=== PATIENT | female | born 1970 | race Two or more races ===

== ENCOUNTER 2018-10-02 20:41 | Emergency (ER) | payer OTHER ==
[2018-10-02 21:06] VITALS: BP 134/84; PULSE 116; TEMP 98.5; BMI 34.5
[2018-10-02] MEDS ORDERED: ALBUTEROL SO4 2.5/IPRATROPIUM 0.5 INH SOL 3 ML VIAL.NEB. NEB ONE ×2 (21:07→21:15)
--- NOTE | 2018-10-02 21:07 | PDOC ---
Rapid Medical Evaluation Time Seen by Provider: 10/02/18 21:01 Medical Evaluation: 10/02/18 21:03 Pt c/o: cough, throat irritation , chills, nasal congestion Pt on brief exam: tachy, afebrile, lcta, noted nasal rhinorrhea pt ordered for: brib x 1 Pt to proceed to the ED Discharge Disposition - Diagnosis Cough - Referrals - Patient Instructions - Post Discharge Activity
[2018-10-02] MEDS ORDERED: DEXAMETHASONE LIQUID 0.5 MG/5 ML 240 ML BULK BOTTLE PO ONE (21:40)
[2018-10-02] MEDS ORDERED: DEXAMETHASONE SOD PHOSPHATE 10 MG/1 ML VIAL ONE (21:42)
--- NOTE | 2018-10-02 21:46 | PDOC ---
History of Present Illness - General Chief Complaint: Cold Symptoms Stated Complaint: COUGH Time Seen by Provider: 10/02/18 21:01 History Source: Patient Exam Limitations: Clinical Condition - History of Present Illness Initial Comments: 10/02/18 21:40 Patient with no significant past medical history present with complaint of persistent dry cough, nasal congestion, runny nose and headache since this morning. Patient denies fever, chills, nausea or vomiting. Denies sick contacts or recent travel. Patient reported taking Robitussin for cough with minimal improvement. Denies any other symptoms Timing/Duration: 4-6 hours Past History - Past Medical History Allergies/Adverse Reactions: Allergies Allergy/AdvReac Type Severity Reaction Status Date / Time No Known Allergies Allergy Verified 10/02/18 21:06 Home Medications: Ambulatory Orders Albuterol Sulfate Inhaler - [Ventolin Hfa Inhaler -] 2 inh PO Q6H #1 inh Benzonatate [Tessalon Pearls -] 100 mg PO TID PRN #21 capsule 10/02/18 Ipratropium [place]ainbridge 2 spray NS BID PRN #1 spray 10/02/18 Montelukast Na [Singulair -] 10 mg PO HS #7 tablet 10/02/18 COPD: No - Suicide/Smoking/Psychosocial Hx Smoking History: Current every day smoker Have you smoked in the past 12 months: Yes Number of Cigarettes Smoked Daily: 10 Information on smoking cessation initiated: No Hx Alcohol Use: No Drug/Substance Use Hx: No Review of Systems - Review of Systems Able to Perform ROS?: Yes Is the patient limited Thai proficient: No Constitutional: No: Chills, Fever, Malaise HEENTM: Yes: Symptoms Reported, See HPI, Nose Congestion. No: Eye Pain, Blurred Vision, Tearing, Recent change in vision, Double Vision, Cataracts, Ear Pain, Ocular Prothesis, Ear Discharge, Nose Pain, Tinnitus, Nose Bleeding, Hearing Loss, Throat Pain, Throat Swelling, Mouth Pain, Dental Problems, Difficulty Swallowing, Mouth Swelling, Other Respiratory: Yes: Symptoms reported, See HPI, Cough. No: Orthopnea, Shortness of Breath, SOB with Exertion, SOB at Rest, Stridor, Wheezing, Productive cough, Hemoptysis, Other Cardiac (ROS): No: Symptoms Reported, See HPI, Chest Pain, Edema, Irregular Heart Rate, Lightheadedness, Palpitations, Syncope, Chest Tightness, Other ABD/GI: No: Nausea, Vomiting Integumentary: No: Symptoms Reported Neurological: Yes: Symptoms reported, Headache. No: Numbness, Paresthesia, Weakness, Dizziness All Other Systems: Reviewed and Negative *Physical Exam - Vital Signs Last Vital Signs Temp Pulse Resp BP Pulse Ox 98.5 F 116 H 21 H 134/84 99 10/02/18 21:04 10/02/18 21:04 10/02/18 21:04 10/02/18 21:04 10/02/18 21:04 - Physical Exam Comments: 10/02/18 21:43 GENERAL: Well developed, well nourished. Awake and alert. No acute distress. HEENT: Bilateral nasal congestion. Normocephalic, atraumatic. PERRLA, EOMI. No conjunctival pallor. Sclera are non-icteric. Moist mucous membranes. Oropharynx is clear. NECK: Supple. Full ROM. CARDIOVASCULAR: Regular rate and rhythm. No murmurs, rubs, or gallops. Distal pulses are 2+ and symmetric. PULMONARY: No evidence of respiratory distress. Lungs clear to auscultation bilaterally. No wheezing, rales or rhonchi. ABDOMINAL: Soft. Non-tender. Non-distended. No rebound or guarding. No organomegaly. Normoactive bowel sounds. MUSCULOSKELETAL Normal range of motion at all joints. EXTREMITIES: No cyanosis. No clubbing. No edema. SKIN: Warm and dry. Normal capillary refill. No rashes. No jaundice. NEUROLOGICAL: Alert, awake, appropriate. Gait is normal without ataxia. PSYCHIATRIC: Cooperative. Good eye contact. Appropriate mood General Appearance: Yes: Nourished, Appropriately Dressed. No: Apparent Distress ED Treatment Course - Medications Given in the ED: ED Medications Discontinued Medications Generic Name Dose Route Start Last Admin Trade Name Freq PRN Reason Stop Dose Admin Albuterol/Ipratropium 1 amp 10/02/18 21:07 10/02/18 21:19 Duoneb - NEB 10/02/18 21:08 1 amp ONCE ONE Administration Medical Decision Making - Medical Decision Making 10/02/18 21:41 Patient with no significant past medical history present with complaint of persistent dry cough, nasal congestion, runny nose and headache since this morning. Patient denies fever, chills, nausea or vomiting. Denies sick contacts or recent travel. Patient reported taking Robitussin for cough with minimal improvement. Denies any other symptoms Exam significant for patient coughing to exam in no respiratory distress. Lungs clear to auscultation bilateral. Bilateral nasal congestion. Patient symptoms likely viral URI versus less likely pneumonia. Patient given DuoNeb nebulizer treatment from triage which help with cough. Decadron 10 mg by mouth given for cough. Patient is stable for discharge on Tessalon Perles when necessary for cough and Atrovent nasal spray for congestion with singular and Ventolin inhaler to help with cough. Patient advised to increase fluid intake and follow up with PCP she is stable for discharge *DC/Admit/Observation/Transfer Diagnosis at time of Disposition: Cough, Nasal congestion URI (upper respiratory infection) Qualifiers: URI type: unspecified URI Qualified Code(s): J06.9 - Acute upper respiratory infection, unspecified - Discharge Dispostion Disposition: HOME Condition at time of disposition: Stable Decision to Admit order: No - Prescriptions Prescriptions: Albuterol Sulfate Inhaler - [Ventolin Hfa Inhaler -] 2 inh PO Q6H #1 inh Benzonatate [Tessalon Pearls -] 100 mg PO TID PRN #21 capsule PRN Reason: Cough Ipratropium [place] 2 spray NS BID PRN #1 spray PRN Reason: nasal congestion Montelukast Na [Singulair -] 10 mg PO HS #7 tablet - Referrals Referrals: Marshall Caraballo MD [Staff Physician] - - Patient Instructions Printed Discharge Instructions: DI for Viral Upper Respiratory Infection -- Adult Additional Instructions: Take medications as prescribed. Increase fluid intake. Follow-up with PCP or referred pulmonology if symptoms persists - Post Discharge Activity
== END 2018-10-02 21:51 | disposition home or self-care (01) ==
LOC: JERFT 20:41
PROC: 3E0F7GC Introduction of Other Therapeutic Substance into Respiratory Tract, Via Natural or Artificial Opening (ICD-10-PCS; principal; 2018-10-02)
DX: J06.9 Acute upper respiratory infection, unspecified (principal); F17.210 Nicotine dependence, cigarettes, uncomplicated
CPT/HCPCS: 99281-25

== ENCOUNTER 2019-03-05 17:18 | Inpatient (IN) | payer OTHER ==
--- NOTE | 2019-03-05 17:51 | PDOC ---
History of Present Illness - General Chief Complaint: Syncope/Near Syncope Stated Complaint: SYNCOPE Time Seen by Provider: 03/05/19 17:45 - History of Present Illness Initial Comments: 03/05/19 18:23 Pt is a 48y/o female with HLD, ?CAD s/p OK or CVA, depression, and benign breast mass (surgery March 25) who presents following loss of consciousness at 3am today. She was awake in bed and felt a sudden onset suboccipital headache with neck pain. She became nauseous and went to the bathroom. She felt tachycardic, short of breath, and dizzy while walking. She had tunnel vision then lost consciousness for possibly a few minutes. She was found by her son on the floor and had defecated herself. She hit the right hinduism and her back on the fall. She continues to have the same tight headache in the occipital and superior portions of her head as well as chest tightness, overall weakness, and intermittent hand paresthesias. She now has pain in her upper back following the fall. She denies dysuria. Pt reports angiogram was done in 2014 in and was told she had a blocked coronary artery but no intervention was done. 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 She does not believe she has had any recent changes in medication. 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 No: Chills, Fever HEENTM: Yes: Blurred Vision Respiratory: Yes: Shortness of Breath. No: Cough Cardiac (ROS): Yes: Palpitations, Chest Tightness ABD/GI: Yes: Nausea. No: Diarrhea, Vomiting : No: Dysuria Musculoskeletal: Yes: Back Pain Neurological: Yes: Headache, Paresthesia *Physical Exam - Vital Signs Last Vital Signs Temp Pulse Resp BP Pulse Ox 98.0 F 105 H 18 131/81 99 03/05/19 17:28 03/05/19 17:28 03/05/19 17:28 03/05/19 17:28 03/05/19 17:28 - Physical Exam General Appearance: Yes: Nourished, Appropriately Dressed. No: Apparent Distress HEENT: positive: EOMI, CYNTHIA Neck: positive: Tender midline Respiratory/Chest: positive: Lungs Clear. negative: Wheezing Cardiovascular: positive: Regular Rhythm, Tachycardia. negative: Murmur Gastrointestinal/Abdominal: positive: Normal Bowel Sounds. negative: Tender Musculoskeletal: positive: Other (thoracic backshoe person to palpation diffusely, multiple areas of erythema) Neurologic: positive: allergist II-XII NML intact, Fully Oriented, Alert, Normal Mood/ Affect, Motor Strength 5/5 ED Treatment Course - LABORATORY CBC & Chemistry Diagram: 03/07/19 05:45 03/07/19 05:45 Medical Decision Making - Medical Decision Making 03/05/19 18:51 Pt is a 48y/o female with HLD, ?CAD s/p OK or CVA, depression, and breast mass ( surgery or radiation March 25) who presents following loss of consciousness at 3am today. She has had a headache and felt weak since then. Pt is poor historian. differential: PE, CVA, OK, dehydration, mets orders: CBC, CMP, TSH, EKG, cardiac profile, CT head and c-spine, CTA, Ofrimev, Reglan, IV fluids Discharge - Discharge Information Problems reviewed: Yes Clinical Impression/Diagnosis: Chest pain, LEWIS (dyspnea on exertion), Syncope, Closed head injury Condition: Fair - Follow up/Referral - Patient Discharge Instructions - Post Discharge Activity
[2019-03-05] MEDS ORDERED: SODIUM CHLORIDE 0.9% 1000 ML INFUS.BAG IV ONE (18:18)
[2019-03-05] MEDS ORDERED: ACETAMINOPHEN 1000 MG/100 ML VIAL (NON FORMULARY) IVPB ONE (18:24)
[2019-03-05] MEDS ORDERED: METOCLOPRAMIDE HCL INJECTION 10 MG/2 ML VIAL ONE (18:31)
[2019-03-05] MEDS ORDERED: ACETAMINOPHEN INJECTION 100 ML IVPB ONE (18:31)
[2019-03-05] MEDS ORDERED: METOCLOPRAMIDE HCL INJECTION 10 MG/2 ML VIAL IVPB ONE (18:36)
[2019-03-05 18:42] LABS: BASO % 0.5 % (0-2.0); EOS % 0.2 % (0-4.5); HEMATOCRIT 31.8 % (32.4-45.2); HEMOGLOBIN 10.4 GM/dL (10.7-15.3); MCHC 32.8 g/dl (32.0-36.0); MEAN CELL VOLUME 82.4 fl (80-96); MEAN PLT VOLUME 9.1 fl (7.5-11.1); MONO % 7.8 % (3.8-10.2); NEUT % 60.5 % (42.8-82.8); PLATELET COUNT 245 K/MM3 (134-434); RBC 3.87 M/mm3 (3.60-5.2); RDW 14.5 % (11.6-15.6); WHITE BLOOD COUNT 5.1 K/mm3 (4.0-10.0)
[2019-03-05 18:55] LABS: INR 0.96 (0.83-1.09); PROTHROMBIN TIME (PATIENT) 11.3 SEC (9.7-13.0)
[2019-03-05 18:58] LABS: ACTIVATED PTT 30.9 SECONDS (25.2-36.5)
--- NOTE | 2019-03-05 19:07 | PDOC ---
*Physical Exam - Vital Signs Last Vital Signs Temp Pulse Resp BP Pulse Ox 98.0 F 105 H 18 131/81 99 03/05/19 17:28 03/05/19 17:28 03/05/19 17:28 03/05/19 17:28 03/05/19 17:28 ED Treatment Course - LABORATORY CBC & Chemistry Diagram: 03/05/19 18:20 03/05/19 18:20 - ADDITIONAL ORDERS Additional order review: Laboratory Results 03/05/19 18:20 PT with INR 11.30 INR 0.96 PTT (Actin FS) 30.9 03/05/19 18:20 RBC 3.87 MCV 82.4 MCHC 32.8 RDW 14.5 MPV 9.1 Neutrophils % 60.5 Lymphocytes % 31.0 Monocytes % 7.8 Eosinophils % 0.2 Basophils % 0.5 - Medications Given in the ED: ED Medications Discontinued Medications Generic Name Dose Route Start Last Admin Trade Name Saulq PRN Reason Stop Dose Admin Acetaminophen 1,000 mg 03/05/19 18:24 03/05/19 18:37 Ofirmev Injection - IVPB 03/05/19 18:25 1,000 mg ONCE ONE Administration Metoclopramide HCl 10 mg 03/05/19 18:36 03/05/19 18:37 Reglan Injection - IVPB 03/05/19 18:37 10 mg ONCE ONE Administration Sodium Chloride 1,000 ml 03/05/19 18:18 03/05/19 18:23 Normal Saline - IV 03/05/19 18:19 1,000 ml ONCE ONE Administration Medical Decision Making - Medical Decision Making 03/05/19 19:00 Pt received on sign out from Dr. Norris 48 y/o female presenting with headache that started at 3am. LOC in the bathroom with head trauma. Defecated on self. SOB. Chest pressure. Hit right yarsanism and back. ED course given tylenol and reglan. CT head/c-spine, CTA pending. EKG pending. 03/05/19 19:22 EKG shows NSR, 97 bpm, RBBB, no ST elevation/depression, QTc 469. 03/05/19 20:32 POCUS echo shows no RV strain and normal ejection fraction. 03/05/19 23:36 CT head shows no acute intracranial pathology. CTA chest shows no signs of PE. CT neck shows no acute fracture. Labs reviewed. Laboratory Last Values WBC 5.1 K/mm3 (4.0-10.0) 03/05/19 18:20 RBC 3.87 M/mm3 (3.60-5.2) 03/05/19 18:20 Hgb 10.4 GM/dL (10.7-15.3) L 03/05/19 18:20 Hct 31.8 % (32.4-45.2) L 03/05/19 18:20 MCV 82.4 fl (80-96) 03/05/19 18:20 MCH 27.0 pg (25.7-33.7) 03/05/19 18:20 MCHC 32.8 g/dl (32.0-36.0) 03/05/19 18:20 RDW 14.5 % (11.6-15.6) 03/05/19 18:20 Plt Count 245 K/MM3 (134-434) 03/05/19 18:20 MPV 9.1 fl (7.5-11.1) 03/05/19 18:20 Absolute Neuts (auto) 3.1 K/mm3 (1.5-8.0) 03/05/19 18:20 Neutrophils % 60.5 % (42.8-82.8) 03/05/19 18:20 Lymphocytes % 31.0 % (8-40) 03/05/19 18:20 Monocytes % 7.8 % (3.8-10.2) 03/05/19 18:20 Eosinophils % 0.2 % (0-4.5) 03/05/19 18:20 Basophils % 0.5 % (0-2.0) 03/05/19 18:20 Nucleated RBC % 0 % (0-0) 03/05/19 18:20 PT with INR 11.30 SEC (9.7-13.0) 03/05/19 18:20 INR 0.96 (0.83-1.09) 03/05/19 18:20 PTT (Actin FS) 30.9 SECONDS (25.2-36.5) 03/05/19 18:20 Sodium 139 mmol/L (136-145) 03/05/19 18:20 Potassium 3.9 mmol/L (3.5-5.1) 03/05/19 18:20 Chloride 105 mmol/L (98-107) 03/05/19 18:20 Carbon Dioxide 24 mmol/L (21-32) 03/05/19 18:20 Anion Gap 10 MMOL/L (8-16) 03/05/19 18:20 BUN 9.8 mg/dL (7-18) 03/05/19 18:20 Creatinine 0.9 mg/dL (0.55-1.3) 03/05/19 18:20 Est GFR (CKD-EPI)AfAm 88.25 03/05/19 18:20 Est GFR (CKD-EPI)NonAf 76.14 03/05/19 18:20 Random Glucose 121 mg/dL (74-106) H 03/05/19 18:20 Calcium 8.5 mg/dL (8.5-10.1) 03/05/19 18:20 Total Bilirubin 0.2 mg/dL (0.2-1) 03/05/19 18:20 AST 19 U/L (15-37) 03/05/19 18:20 ALT 26 U/L (13-61) 03/05/19 18:20 Alkaline Phosphatase 99 U/L (45-117) 03/05/19 18:20 Creatine Kinase 130 U/L (26-192) 03/05/19 18:20 Troponin I < 0.02 ng/ml (0.00-0.05) 03/05/19 18:20 Total Protein 7.2 g/dl (6.4-8.2) 03/05/19 18:20 Albumin 3.9 g/dl (3.4-5.0) 03/05/19 18:20 TSH 1.48 uIU/ml (0.358-3.74) 03/05/19 18:20 Serum , Qual Negative 03/05/19 18:20 Urine Color Yellow 03/05/19 20:48 Urine Appearance Cloudy 03/05/19 20:48 Urine pH 5.0 (5.0-8.0) 03/05/19 20:48 Ur Specific [place] 1.024 (1.010-1.035) 03/05/19 20:48 Urine Protein Negative (NEGATIVE) 03/05/19 20:48 Urine Glucose (UA) Negative (NEGATIVE) 03/05/19 20:48 Urine Ketones Trace (NEGATIVE) H 03/05/19 20:48 Urine Blood Negative (NEGATIVE) 03/05/19 20:48 Urine Nitrite Negative (NEGATIVE) 03/05/19 20:48 Urine Bilirubin Negative (NEGATIVE) 03/05/19 20:48 Urine Urobilinogen 0.2 mg/dL (0.2-1.0) 03/05/19 20:48 Ur Leukocyte Esterase Negative (NEGATIVE) 03/05/19 20:48 03/05/19 2300 D/w Dr. Allen who accepts the patient for admission. Discharge - Discharge Information Problems reviewed: Yes Clinical Impression/Diagnosis: Chest pain, LEWIS (dyspnea on exertion), Syncope, Closed head injury Condition: Fair - Admission No - Follow up/Referral - Patient Discharge Instructions - Post Discharge Activity
--- NOTE | 2019-03-05 19:11 | PDOC ---
Documentation entered by Eduard Roca SCRIBE, acting as scribe for Deisy Ochoa DO. Deisy Ochoa DO: This documentation has been prepared by the Abelino koo Daniel, SCRIBE, under my direction and personally reviewed by me in its entirety. I confirm that the documentation accurately reflects all work, treatment, procedures, and medical decision making performed by me. Attending Attestation - Resident Resident Name: Roberta Norris - ED Attending Attestation I have performed the following: I have examined & evaluated the patient, The case was reviewed & discussed with the resident, I agree w/resident's findings & plan, Exceptions are as noted - HPI HPI: 03/05/19 18:25 The patient is a 48 year old female with a past medical history of HLD and benign breast mass (surgery scheduled for 03/25/2019) here today for evaluation of a syncopal episode. The patient reports that she woke up at 3 this morning and felt a sudden occipital headache that radiated to her neck and nausea. She reports that she got up to go to the bathroom when she felt tunnel vision and blacked out. She states that she is unsure of how long she was out but thinks that it was for a few minutes. She also admits that she lost control of her bowels and defecated on herself and endorses palpitations and shortness of breath. Patient denies lightheadedness. Denies fever, chills. Denies chest pain. Denies nausea, vomiting, diarrhea, abdominal pain. Allergies: NKA - Physicial Exam PE: 03/05/19 18:36 Constitutional: Awake, alert, oriented. No acute distress. Head: Normocephalic. Atraumatic Eyes: PERRL. EOMI. Conjunctivae are not pale. ENT: Mucous membranes are moist and intact. Posterior pharynx without exudates or erythema. Uvula midline. Neck: Supple. Full ROM. No lymphadenopathy. Cardiovascular: +tachycardia. Regular rhythm. S1, S2 regular. Distal pulses are 2+ and symmetric. Pulmonary/Chest: +severe conversational dyspnea. +tachypnea. Clear to auscultation bilaterally No wheezing, rales or rhonchi. Abdominal: Soft and non-distended. There is no tenderness. No rebound, guarding or rigidity. No organomegaly. No palpable masses. Good bowel sounds. Back: No CVA tenderness. Musculoskeletal: +walks with cane secondary to leg injury 2 years ago. No edema. No cyanosis. No clubbing. Full range of motion in all extremities. Nocalf tenderness. Radial/pedal pulses are intact and 2+ bilaterally Skin: Skin is warm and dry. No petechiae. No purpura. Neurological: Alert and oriented to person, place, and time. Cranial nerves II -XII are grossly intact. Normal speech. Strength is grossly symmetric. No sensory deficits. Psychiatric: Good eye contact. Normal interaction, affect and behavior. - Medical Decision Making 03/05/19 19:09 a/p: 48yo female with castrejon, syncope, cp/palpitations, sob -pt scheduled for benign breast mass resection on Mar 25 -pt with acute onset of castrejon today, syncope, cp/palpitaitons -pt with gomez and conversational dyspnea -pt with palpitations and pleuritic cp -concern for PE -will send labs, ekg, head ct, cta chest, cardiac monitoring -will start reglan, tylenol, ivf -also with hx of CAD dx in [place] - given cp and sob pt will need serial trops -will monitor and reassess -pt will need admission vs obs 03/05/19 19:13 pt states castrejon resolved feeling better no longer tachypnic still tachy 03/05/19 20:22 labs reviewed no elevated wbc trop neg tsh normal pending imaging 03/05/19 22:27 head and c spine ct neg pending cta 03/05/19 22:40 cta neg no pe, small poss nodule pt updated on results agrees to stay for repeat trop microblog sent to [facility] for admission 03/05/19 23:10 resident discussed the case with [facility] who accepts pt to service Discharge - Discharge Information Problems reviewed: Yes Clinical Impression/Diagnosis: Chest pain, GOMEZ (dyspnea on exertion), Syncope, Closed head injury Condition: Fair - Admission Yes - Follow up/Referral Referrals: ON STAFF,NOT [Primary Care Provider] - - Patient Discharge Instructions - Post Discharge Activity Heart Score/ECG Review - ECG Intrepretation Comment:: 03/05/19 19:14 sinus at 97, nl axis, RBBB, abnl ekg
[2019-03-05 19:29] LABS: ALBUMIN 3.9 g/dl (3.4-5.0); BILIRUBIN,TOTAL 0.2 mg/dL (0.2-1); BLOOD UREA NITROGEN 9.8 mg/dL (7-18); CALCIUM 8.5 mg/dL (8.5-10.1); CREATININE 0.9 mg/dL (0.55-1.3); POTASSIUM 3.9 mmol/L (3.5-5.1); TOT PROT 7.2 g/dl (6.4-8.2)
[2019-03-05 21:34] LABS: URINE APPEARANCE CLOUDY; URINE BILIRUBIN NEGATIVE (NEGATIVE); URINE COLOR YELLOW; URINE GLUCOSE (UA) NEGATIVE (NEGATIVE); URINE KETONE TRACE (NEGATIVE); URINE LEUK ESTERASE NEGATIVE (NEGATIVE); URINE NITRITE NEGATIVE (NEGATIVE); URINE PROTEIN NEGATIVE (NEGATIVE); URINE UROBILINOGEN 0.2 mg/dL (0.2-1.0)
--- NOTE | 2019-03-05 23:26 | HP ---
CHIEF COMPLAINT: Unwitnessed fall 2/2 syncopal episode PCP: Not on staff HISTORY OF PRESENT ILLNESS: This is a 48 year old female with PMH of HLD, TIA/CVA, depression, and a breast mass. She presented to the ER after an unwitnessed episode of syncope involving a fall and head trauma at 3AM. She states that she was in bed at night when she began to experience chest tightness, SOB, chills, erratic eye movements, an occipital headache, and nausea. She went to the bathroom, and began to experience flashing lights and then became unconscious after she sat down on the toilet. She was then found by her son after an undetermined amount of time on the bathroom floor. She had accidentally defecated, and while the rest of her symptoms had subsided, she still experienced an occipital headache. She took a old shower, and was then brought to the ER. She has a history of "mild stroke" in 2014, and was admitted to [facility]. At the time, she experienced left sided numbness and tingling with facial droop. She is not sure how long she was admitted for. She denies any family history of seizures, CAD, DM, but states that 2 of her sisters had Breast CA. She tested positive for a Breast CA gene (likely BRAC) and was found to have a pre-malignant lump in her left breast on biopsy, and underwent breast marker placement for lumpectomy scheduled Mar 2019 ER course was notable for: (1) CT, CT Spine negative. CTA: RLL ground glass opacity that may be scarring vs nodule (2) H&H 10.4/31.8 (3) EKG 97 bpm, RBBB, no ST elevation/depression, QTc 469, Trop negative Recent Travel: denies PAST MEDICAL HISTORY: As listed in HPI PAST SURGICAL HISTORY: Breast biopsy, Cervical biopsy, abdominal liposuction, ankle surgery Social History: Former adan Smoking: Has recently started smoking a few cigarettes per day Alcohol: Occasionally Drugs: denies Allergies No Known Allergies Allergy (Verified 03/05/19 17:34) HOME MEDICATIONS: Home Medications Medication Instructions Recorded Albuterol Sulfate Inhaler - 2 inh PO Q6H #1 inh 10/02/18 [Ventolin Hfa Inhaler -] Benzonatate [Tessalon Pearls -] 100 mg PO TID PRN #21 capsule 10/02/18 Ipratropium Lawrence 2 spray NS BID PRN #1 spray 10/02/18 Montelukast Na [Singulair -] 10 mg PO HS #7 tablet 10/02/18 REVIEW OF SYSTEMS CONSTITUTIONAL: Absent: fever, chills, diaphoresis, generalized weakness, malaise, loss of appetite, weight change HEENT: Absent: rhinorrhea, nasal congestion, throat pain, throat swelling, difficulty swallowing, mouth swelling, ear pain, eye pain, visual changes CARDIOVASCULAR: Absent: chest pain, syncope, palpitations, irregular heart rate, lightheadedness , peripheral edema RESPIRATORY: Absent: cough, shortness of breath, dyspnea with exertion, orthopnea, wheezing, stridor, hemoptysis GASTROINTESTINAL: Absent: abdominal pain, abdominal distension, nausea, vomiting, diarrhea, constipation, melena, hematochezia GENITOURINARY: Absent: dysuria, frequency, urgency, hesitancy, hematuria, flank pain, genital pain MUSCULOSKELETAL: Absent: myalgia, arthralgia, joint swelling, back pain, neck pain SKIN: Absent: rash, itching, pallor HEMATOLOGIC/IMMUNOLOGIC: Absent: easy bleeding, easy bruising, lymphadenopathy, frequent infections ENDOCRINE: Absent: unexplained weight gain, unexplained weight loss, heat intolerance, cold intolerance NEUROLOGIC: headache Absent: headache, focal weakness or paresthesias, dizziness, unsteady gait, seizure, mental status changes, bladder or bowel incontinence PSYCHIATRIC: Absent: anxiety, depression, suicidal or homicidal ideation, hallucinations. PHYSICAL EXAMINATION Vital Signs - 24 hr 03/05/19 17:28 Temperature 98.0 F Pulse Rate 105 H Respiratory 18 Rate Blood Pressure 131/81 O2 Sat by Pulse 99 Oximetry (%) Orthostatic vitals: Negative Supine: 122/78 HR 89 Standin/82 HR 92 GENERAL: AOx3 HEAD: Small ecchymoses noted on forehead as well as Rt restorationism EYES: Pupils equal, round and reactive to light, extraocular movements intact, sclera anicteric, conjunctiva clear. No lid lag. EARS, NOSE, THROAT: Ears normal, nares patent, oropharynx clear without exudates. Moist mucous membranes. NECK: Normal range of motion, supple without lymphadenopathy, JVD, or masses. LUNGS: Breath sounds equal, clear to auscultation bilaterally. No wheezes, and no crackles. No accessory muscle use. HEART: Regular rate and rhythm, normal S1 and S2 without murmur, rub or gallop. ABDOMEN: Soft, nontender, not distended, normoactive bowel sounds, no guarding, no rebound, no masses. No hepatomegaly or splenomegaly. MUSCULOSKELETAL: Paraspinal tenderness in thoracic paraspinal region UPPER EXTREMITIES: 2+ pulses, warm, well-perfused. No cyanosis. No clubbing. No peripheral edema. LOWER EXTREMITIES: 2+ pulses, warm, well-perfused. No calf tenderness. No peripheral edema. NEUROLOGICAL: Motor 4/5 on L and 5/5 on R, sensation intact PSYCHIATRIC: Cooperative. Good eye contact. Appropriate mood and affect. SKIN: Warm, dry, normal turgor, no rashes or lesions noted, normal capillary refill. Laboratory Results - last 24 hr 03/05/19 03/05/19 03/05/19 18:20 18:20 18:20 WBC 5.1 RBC 3.87 Hgb 10.4 L Hct 31.8 L MCV 82.4 MCH 27.0 MCHC 32.8 RDW 14.5 Plt Count 245 MPV 9.1 Absolute Neuts (auto) 3.1 Neutrophils % 60.5 Lymphocytes % 31.0 Monocytes % 7.8 Eosinophils % 0.2 Basophils % 0.5 Nucleated RBC % 0 PT with INR 11.30 INR 0.96 PTT (Actin FS) 30.9 Sodium Potassium Chloride Carbon Dioxide Anion Gap BUN Creatinine Est GFR (CKD-EPI)AfAm Est GFR (CKD-EPI)NonAf Random Glucose Calcium Total Bilirubin AST ALT Alkaline Phosphatase Creatine Kinase 130 Troponin I < 0.02 Total Protein Albumin TSH Serum , Qual Urine Color Urine Appearance Urine pH Ur Specific [place] Urine Protein Urine Glucose (UA) Urine Ketones Urine Blood Urine Nitrite Urine Bilirubin Urine Urobilinogen Ur Leukocyte Esterase 03/05/19 03/05/19 03/05/19 18:20 18:20 20:48 WBC RBC Hgb Hct MCV MCH MCHC RDW Plt Count MPV Absolute Neuts (auto) Neutrophils % Lymphocytes % Monocytes % Eosinophils % Basophils % Nucleated RBC % PT with INR INR PTT (Actin FS) Sodium 139 Potassium 3.9 Chloride 105 Carbon Dioxide 24 Anion Gap 10 BUN 9.8 Creatinine 0.9 Est GFR (CKD-EPI)AfAm 88.25 Est GFR (CKD-EPI)NonAf 76.14 Random Glucose 121 H Calcium 8.5 Total Bilirubin 0.2 AST 19 ALT 26 Alkaline Phosphatase 99 Creatine Kinase Troponin I Total Protein 7.2 Albumin 3.9 TSH 1.48 Serum , Qual Negative Urine Color Yellow Urine Appearance Cloudy Urine pH 5.0 Ur Specific [place] 1.024 Urine Protein Negative Urine Glucose (UA) Negative Urine Ketones Trace H Urine Blood Negative Urine Nitrite Negative Urine Bilirubin Negative Urine Urobilinogen 0.2 Ur Leukocyte Esterase Negative ASSESSMENT/PLAN: 48F with PMH of HLD, TIA/CVA, depression, and a breast mass. She presented to the ER after an unwitnessed episode of syncope involving a fall and head trauma at 3AM last night. #Fall 2/2 syncope vs other causes - Syncope vs other causes of LOC - Syncopal causes: reflex, structural cardiac, arrhythmia, orthostatic - Structural: Echo ordered to r/o cardiac functional/structural causes, POCUS echo in ER showed no RV strain and normal EF BNP ordered, studies suggest BNP may be predictive of those at risk for adverse outcomes following syncope - Orthostatic: Orthostatics: Negative, Supine: 122/78 HR 89, Standin/ 82 HR 92 - Arrythmia: EKG 97 bpm, no ST elevation/depression - Reflex: Prodrome of nausea, pallor, and diaphoresis in patient, consistent with increased vagal tone, but duration of her unconsciousness seems to be longer than would be expected in reflex syncope - Other causes: head trauma, seizures, intoxications, or metabolic disorders - Trauma: Occured after syncope, no history of recent trauma and CT was clear - Seizures: Neuro consult placed, may need EEG, pt experienced flashing lights, may be aura, plus incontinence suggestive of seizure - Intoxicants: UTox ordered, patient denies any new meds, unconfirmed med list provided by patient contains Narcan - Metabolic disorders: No electrolyte imbalances noted, Glucose moderately elevated at 121 but unlikely to have caused LOC, no signs of hypoxia , hyperventilation with hypocapnia - CT, CT Spine negative. CTA: No signs of PE, RLL ground glass opacity that may be scarring vs nodule - Patient complaining of thoracic spinal and paraspinal tenderness, may need X Ray of persists #Chest pain - EKG: EKG 97 bpm, RBBB, no ST elevation/depression - Troponin negative, repeat ordered in AM #Anemia - H/H 10.4/31.8 - Unclear etiology, TIBC ordered - Will monitor H/H #Ketonuria - Trace ketones on UA, no glucosuria and BG 121, no anion gap - Will monitor for now #Lung nodule/scarring - Incidental finding on CTA, no previous records available for comparison - Interval F/U recommended after D/C #Hx of HLD - Continue home meds once confirmed #Hx of depression - Continue home meds once confirmed #FEN - Cholesterol controlled diet #DVT - Lovenox SQ #Dispo - Tele monitoring for now Visit type - Emergency Visit Emergency Visit: Yes ED Registration Date: 03/05/19 Care time: The patient presented to the Emergency Department on the above date and was hospitalized for further evaluation of their emergent condition. - New Patient This patient is new to me today: Yes Date on this admission: 03/06/19 - Critical Care Critical Care patient: No ATTENDING PHYSICIAN STATEMENT I saw and evaluated the patient. I reviewed the resident's note and discussed the case with the resident. I agree with the resident's findings and plan as documented. SUBJECTIVE: OBJECTIVE: ASSESSMENT AND PLAN:
--- NOTE | 2019-03-06 03:17 | PN ---
Teaching Attending Note Name of Resident: Alejandro Danielle ATTENDING PHYSICIAN STATEMENT I saw and evaluated the patient. I reviewed the resident's note and discussed the case with the resident. I agree with the resident's findings and plan as documented. SUBJECTIVE: 48 year old female with a past medical history of HLD and benign breast mass ( surgery scheduled for 03/25/2019) Presents for evaluation after Loss of consciousness episode which occurred after patient woke up at about 3 AM and felt a sudden headache, radiated to her neck associated with nausea. When patient stood up and went to the bathroom she blacked out. Lost consciousness for a few several seconds and defecated on herself. Has little recollection of preceding events. No history of seizure disorder. OBJECTIVE: Last Vital Signs Temp Pulse Resp BP Pulse Ox 98.0 F 82 16 112/61 100 03/05/19 23:25 03/05/19 23:25 03/05/19 23:25 03/05/19 23:25 03/05/19 23:25 GENERAL: Well developed, well nourished. Awake and alert. No acute distress. HEENT: Normocephalic, atraumatic. PERRLA, EOMI. No conjunctival pallor. Sclera are non- icteric. NECK: Supple. Full ROM. No JVD. Carotid pulses 2+ and symmetric, without bruits. No thyromegaly. CARDIOVASCULAR: Regular rate and rhythm. No murmurs, rubs, or gallops. Distal pulses are 2+ and symmetric. PULMONARY: No evidence of respiratory distress. Lungs clear to auscultation bilaterally. No wheezing, rales or rhonchi. ABDOMINAL: Soft. Non-tender. Non-distended. No rebound or guarding. No organomegaly. Normoactive bowel sounds. MUSCULOSKELETAL Normal range of motion at all joints. No bony deformities or tenderness. No CVA tenderness. EXTREMITIES: No cyanosis. No clubbing. No edema. No calf tenderness. SKIN: Warm and dry. Normal capillary refill. No rashes. No jaundice. PSYCHIATRIC: Cooperative. Good eye contact. Appropriate mood and affect. Abnormal Lab Results 03/05/19 03/05/19 03/05/19 18:20 18:20 20:48 Hgb 10.4 L Hct 31.8 L Random Glucose 121 H Urine Ketones Trace H Head CT without contrast reviewedno CT evidence of acute intracranial pathology , cervical spine CTno fractures identified, CTA of thoraxno CT evidence of pulmonary embolism or other acute intrathoracic pathology. 0.6 cm subtle right lower lobe groundglass opacitymay represent scarring and less likely pulmonary nodule. ASSESSMENT AND PLAN: #Seizure disorder versus syncope episode. High likelihood of seizure as patient defecated on herself, possible postictal state Telemetry obs Neurology evaluation Check orthostatics Fluid hydration Bedrest and fall precautions Transthoracic echo #Anemiastable Heparin subcutaneously for DVT prophylaxis
[2019-03-06 06:00] LABS: BASO % 0.8 % (0-2.0); EOS % 0.3 % (0-4.5); HEMATOCRIT 28.9 % (32.4-45.2); HEMOGLOBIN 9.4 GM/dL (10.7-15.3); LYMPH % 40.8 % (8-40); MCH 26.8 pg (25.7-33.7); MCHC 32.6 g/dl (32.0-36.0); MEAN CELL VOLUME 82.2 fl (80-96); MEAN PLT VOLUME 8.8 fl (7.5-11.1); MONO % 9.2 % (3.8-10.2); NEUT % 48.9 % (42.8-82.8); PLATELET COUNT 190 K/MM3 (134-434); RBC 3.51 M/mm3 (3.60-5.2); RDW 14.3 % (11.6-15.6)
[2019-03-06 06:23] LABS: IRON SERUM 19 ug/dL (50-175); TOTAL IRON BINDING CAPACITY 407 ug/dL (250-450)
[2019-03-06 06:24] LABS: ALBUMIN 3.5 g/dl (3.4-5.0); BILIRUBIN,TOTAL 0.2 mg/dL (0.2-1); BLOOD UREA NITROGEN 12.4 mg/dL (7-18); CALCIUM 8.2 mg/dL (8.5-10.1); CREATININE 0.8 mg/dL (0.55-1.3); PHOSPHOROUS 3.6 mg/dL (2.5-4.9); POTASSIUM 3.9 mmol/L (3.5-5.1); TOT PROT 6.5 g/dl (6.4-8.2)
[2019-03-06] MEDS ORDERED: ACETAMINOPHEN 325 MG TABLET (FP) ONE (07:45)
[2019-03-06] MEDS: ACETAMINOPHEN 325 MG TABLET (FP) PO PRN (07:50)
[2019-03-06 08:28] LABS: COCAINE, UR NEGATIVE ng/ml (CUTOFF=300); METHADONE, UR NEGATIVE ng/ml (CUTOFF=300); OPIATES, URI NEGATIVE ng/ml (CUTOFF=300); PHENCYCLIDINE,URINE NEGATIVE ng/ml (CUTOFF=25); URINE AMPHETAMINES NEGATIVE ng/ml (CUTOFF=500); URINE BARBITURATES NEGATIVE ng/ml (CUTOFF=200); URINE BENZODIAZEPINES NEGATIVE ng/ml (CUTOFF=200)
[2019-03-06 08:30] LABS: N-TERMINAL BNP 18.3 pg/ml (5-125)
--- NOTE | 2019-03-06 09:10 | PN ---
Teaching Attending Note Name of Resident: Christa Barrera ATTENDING PHYSICIAN STATEMENT I saw and evaluated the patient. I reviewed the resident's note and discussed the case with the resident. I agree with the resident's findings and plan as documented. SUBJECTIVE:patient c/o mild haede ache OBJECTIVE: Vital Signs Temperature 97 F L 03/06/19 07:55 Pulse Rate 68 03/06/19 08:29 Respiratory Rate 18 03/06/19 07:55 Blood Pressure 128/78 03/06/19 08:29 O2 Sat by Pulse Oximetry (%) 98 03/06/19 07:55 General: Young female obese, comfortable, not in distress HEENT; mucous membranes moist, no anemia, no jaundice, PERRLA, no nystagmus Neck: No JVD, supple, no bruit, thyroid palpably normal, normal carotid pulsations. Chest: Nontender, clear to auscultation bilaterally CVS: S1-S2 regular no murmur/gallop/rub Abdomen: Nondistended, soft, bowel sounds present. Extremities: No edema., No cALF tenderness, pulses present DIRECTOR OF NUCLEAR MEDICINE: AO X3 , no gross motor sensory deficit CBC, BMP 03/06/19 05:21 03/06/19 05:21 CT head: No acute changes CTA chest with PE protocol: No PE or any infiltrate ECHO: Normal Active Medications Acetaminophen (Tylenol -) 650 mg PO Q6H PRN PRN Reason: Fever Or Pain Last Admin: 03/06/19 07:50 Dose: 650 mg Albuterol Sulfate (Ventolin Hfa Inhaler -) 2 puff IH Q6H ROSALINDA Aripiprazole (Abilify) 15 mg PO DAILY ROSALINDA Benztropine Mesylate (Cogentin -) 0.5 mg PO DAILY ROSALINDA Clonazepam (Klonopin -) 0.5 mg PO DAILY PRN PRN Reason: ANXIETY Montelukast Sodium (Singulair -) 10 mg PO HS ROSALINDA Non-Formulary Medication (Mirtazapine [Mirtazapine]) 7.5 mg PO HS ROSALINDA ASSESSMENT AND PLAN: 48 years old female history of hyperlipidemia, iron deficiency anemia present after an episode of severe headache and syncope when as per patient she was watching TV around 3.00 am developed some nausea, head ache and stars in his visual field, patient got up and walking to restroom felt dizzy , blacked out, landed on the floor with stool incontinence, no focal weakness ; Impression; Transient loss of consciousness: Rule out seizure/atypical migraine, patient needs neuro evaluation before DC home. Problem List - Problems (1) Transient loss of consciousness Assessment/Plan: Possibilities of syncope/seizure or atypical migraine needs, neurochecks neuro evaluation, telemetry monitoring, echo shows no abnormality. Problems reviewed: Yes Code(s): R55 - SYNCOPE AND COLLAPSE (2) Schizoaffective disorder Assessment/Plan: Medication Problems reviewed: Yes Code(s): F25.9 - SCHIZOAFFECTIVE DISORDER, UNSPECIFIED (3) Hypertension Assessment/Plan: Well-controlled continue all home medication Code(s): I10 - ESSENTIAL (PRIMARY) HYPERTENSION (4) Asthma Assessment/Plan: Continue albuterol MDI as needed Problems reviewed: Yes Code(s): J45.909 - UNSPECIFIED ASTHMA, UNCOMPLICATED
[2019-03-06] MEDS ORDERED: ENOXAPARIN NA (PORCINE) 40 MG/0.4 ML DISP.SYRIN SQ SCH (10:00)
--- NOTE | 2019-03-06 10:52 | ECHO ---
Name: DAVID DILLARD Exam:Adult Echocardiogram Study Date: 03/06/2019 08:38 AM Age: 48 yrs Height: 63 in Weight: 198 lb BSA: 1.9 m2 MMode/2D Measurements & Calculations IVSd: 1.1 cm Ao root diam: 2.7 cm LVIDd: 4.0 cm LA dimension: 2.8 cm LVIDs: 2.2 cm ACS: 1.9 cm LVPWd: 0.80 cm EDV(Teich): 69.6 ml LVOT diam: 1.8 cm ESV(Teich): 16.7 ml RV S Robinson: 12.1 cm/sec Doppler Measurements & Calculations MV E max robinson: 85.4 cm/sec Ao V2 max: 143.5 cm/sec MV A max robinson: 66.6 cm/sec Ao max P.2 mmHg MV E/A: 1.3 Ao V2 mean: 100.2 cm/sec MV dec time: 0.19 sec Ao mean P.5 mmHg Ao V2 VTI: 34.2 cm RAMÓN(I,D): 1.8 cm2 RAMÓN(V,D): 1.9 cm2 LV V1 max P.3 mmHg MR max robinson: 300.9 cm/sec LV V1 mean P.1 mmHg MR max P.7 mmHg LV V1 max: 103.2 cm/sec LV V1 mean: 68.0 cm/sec LV V1 VTI: 23.9 cm SV(LVOT): 61.7 ml TR max robinson: 210.1 cm/sec TR max P.7 mmHg PA V2 max: 55.3 cm/sec PI end-d robinson: 89.6 cm/sec PA max P.2 mmHg Med Peak E' Robinson: 9.2 cm/sec Med E/e': 9.3 Lat Peak E' Robinson: 13.2 cm/sec Lat E/e': 6.5 Left Ventricle Left ventricular systolic function is normal. Ejection Fraction = 55-60%. Right Ventricle The right ventricle is normal in size and function. Atria Normal left and right atrial size and function. Mitral Valve The mitral valve is normal in structure and function. There is no mitral valve stenosis. There is mil d mitral regurgitation. Tricuspid Valve The tricuspid valve is normal in structure and function. There is mild tricuspid regurgitation. Right ventricular systolic pressure is normal. Aortic Valve The aortic valve opens well. No hemodynamically significant valvular aortic stenosis. No aortic regur gitation is present. Pulmonic Valve The pulmonic valve is not well seen, but is grossly normal. There is no pulmonic valvular stenosis. Great Vessels The aortic root is normal size. Pericardium/Pleura There is no pericardial effusion. Interpretation Summary Left ventricular systolic function is normal. Ejection Fraction = 55-60%. There is mild mitral regurgitation. There is mild tricuspid regurgitation. Right ventricular systolic pressure is normal. There is no pericardial effusion. MD Duval *Sonia 03/06/2019 10:52 AM
--- NOTE | 2019-03-06 13:48 | EKG ---
Test Reason : Blood Pressure : / mmHG Vent. Rate : 073 BPM Atrial Rate : 073 BPM P-R Int : 218 ms QRS Dur : 126 ms QT Int : 422 ms P-R-T Axes : 069 078 041 degrees QTc Int : 464 ms SINUS RHYTHM WITH SINUS ARRHYTHMIA WITH 1ST DEGREE A-V BLOCK RIGHT BUNDLE BRANCH BLOCK ABNORMAL ECG WHEN COMPARED WITH ECG OF 05-MAR-2019 17:42, [place] INTERVAL HAS INCREASED Confirmed by KARINE GUNTER MD ([id number]) on 03/06/2019 1:47:47 PM Referred By: Confirmed By:KARINE GUNTER MD
--- NOTE | 2019-03-06 14:04 | EKG ---
Test Reason : Blood Pressure : / mmHG Vent. Rate : 097 BPM Atrial Rate : 097 BPM P-R Int : 168 ms QRS Dur : 124 ms QT Int : 370 ms P-R-T Axes : 061 078 045 degrees QTc Int : 469 ms NORMAL SINUS RHYTHM POSSIBLE LEFT ATRIAL ENLARGEMENT RIGHT BUNDLE BRANCH BLOCK ABNORMAL ECG NO PREVIOUS ECGS AVAILABLE Confirmed by KARINE GUNTER MD ([id number]) on 03/06/2019 2:03:44 PM Referred By: Confirmed By:KARINE GUNTER MD
[2019-03-06 14:37] VITALS: BMI 35.3
[2019-03-06] MEDS ORDERED: clonazePAM 0.5 MG TABLET PO PRN (15:06)
[2019-03-06] MEDS: ALBUTEROL SO4 8 GM HFA INHALER IH SCH ×2 (16:34→21:48)
[2019-03-06] MEDS: MIRTAZAPINE 15 MG TABLET (FP) PO SCH (21:48)
[2019-03-06] MEDS: MONTELUKAST NA 10 MG TABLET PO SCH (21:49)
[2019-03-07] MEDS: ALBUTEROL SO4 8 GM HFA INHALER IH SCH ×4 (02:53→21:07)
[2019-03-07 07:14] LABS: BASO % 0.5 % (0-2.0); EOS % 0.3 % (0-4.5); HEMATOCRIT 27.8 % (32.4-45.2); HEMOGLOBIN 9.2 GM/dL (10.7-15.3); LYMPH % 39.2 % (8-40); MCH 26.9 pg (25.7-33.7); MEAN CELL VOLUME 81.6 fl (80-96); MEAN PLT VOLUME 8.9 fl (7.5-11.1); MONO % 8.6 % (3.8-10.2); NEUT % 51.4 % (42.8-82.8); PLATELET COUNT 182 K/MM3 (134-434); RBC 3.41 M/mm3 (3.60-5.2); RDW 14.3 % (11.6-15.6); WHITE BLOOD COUNT 4.1 K/mm3 (4.0-10.0)
[2019-03-07 07:51] LABS: ALBUMIN 3.2 g/dl (3.4-5.0); BILIRUBIN,TOTAL 0.3 mg/dL (0.2-1); BLOOD UREA NITROGEN 13.7 mg/dL (7-18); CALCIUM 8.2 mg/dL (8.5-10.1); CREATININE 0.8 mg/dL (0.55-1.3); POTASSIUM 3.9 mmol/L (3.5-5.1)
[2019-03-07] MEDS ORDERED: PT OWN MED DRAWER 7, Y5N ONE (09:14)
[2019-03-07] MEDS: ARIPiprazole 15 MG TABLET PO SCH (09:17)
[2019-03-07] MEDS: BENZTROPINE MESYLATE 0.5 MG TABLET (FP) PO SCH (09:17)
--- NOTE | 2019-03-07 11:32 | PN ---
Progress Note, Physician Chief Complaint: syncope History of Present Illness: feeling better, still with right sided neck pain. denies cp, sob, palpitations, nvd. - Current Medication List Current Medications: Active Medications Acetaminophen (Tylenol -) 650 mg PO Q6H PRN PRN Reason: Fever Or Pain Last Admin: 03/06/19 07:50 Dose: 650 mg Albuterol Sulfate (Ventolin Hfa Inhaler -) 2 puff IH Q6H [facility] Last Admin: 03/07/19 09:17 Dose: 2 puff Aripiprazole (Abilify) 15 mg PO DAILY [facility] Last Admin: 03/07/19 09:17 Dose: 15 mg Benztropine Mesylate (Cogentin -) 0.5 mg PO DAILY [facility] Last Admin: 03/07/19 09:17 Dose: 0.5 mg Clonazepam (Klonopin -) 0.5 mg PO DAILY PRN PRN Reason: ANXIETY Mirtazapine (Remeron -) 7.5 mg PO [facility] Last Admin: 03/06/19 21:48 Dose: 7.5 mg Montelukast Sodium (Singulair -) 10 mg PO [facility] Last Admin: 03/06/19 21:49 Dose: 10 mg - Objective Vital Signs: Vital Signs Temperature 98.4 F 03/07/19 09:16 Pulse Rate 86 03/07/19 09:16 Respiratory Rate 18 03/07/19 09:16 Blood Pressure 122/68 03/07/19 09:16 O2 Sat by Pulse Oximetry (%) 97 03/06/19 21:00 Constitutional: Yes: Well Nourished, No Distress, Calm HENT: Yes: WNL, Atraumatic, Normocephalic Neck: Yes: WNL, Supple, Trachea Midline Cardiovascular: Yes: WNL, Regular Rate and Rhythm Respiratory: Yes: WNL, Regular, CTA Bilaterally Gastrointestinal: Yes: WNL, Normal Bowel Sounds, Soft, Abdomen, Obese Extremities: Yes: WNL Edema: No Neurological: Yes: WNL, Alert, Oriented, Cran Nerves II-XII Intact ...Motor Strength: WNL Psychiatric: Yes: WNL, Alert, Oriented Labs: CBC, BMP 03/07/19 05:45 03/07/19 05:45 INR, PTT INR 0.96 (0.83-1.09) 03/05/19 18:20 Problem List - Problems (1) Hypertension Code(s): I10 - ESSENTIAL (PRIMARY) HYPERTENSION (2) Schizoaffective disorder Code(s): F25.9 - SCHIZOAFFECTIVE DISORDER, UNSPECIFIED (3) Syncope Code(s): R55 - SYNCOPE AND COLLAPSE (4) Transient loss of consciousness Code(s): R55 - SYNCOPE AND COLLAPSE Assessment/Plan ASSESSMENT: 48 year old female with PMH of HLD, TIA/CVA, depression presents to ED after an unwitnessed episode of syncope involving a fall and head trauma. LOC-unclear etiology Anemia Chest pain HLD Depression Lung nodule PLAN: -echo report reviewed, unremarkable -negative orthostatics -chest pain resolved, trop neg -KYMBERLY 2/2 heavy menses, needs to fu outpatient with occupational medicine specialist -lung nodule needs close outpatient followup -neuro eval pending
--- NOTE | 2019-03-07 13:03 | CON.NEURO ---
Consult - History of Present Illness History of Present Illness: 48 year old female with PMH of HLD, TIA/CVA, depression, and a breast mass. She presented to the ER after an unwitnessed episode of syncope involving a fall and head trauma at 3AM. She states that she was in bed at night when she began to experience chest tightness, SOB, chills, erratic eye movements, an occipital headache, and nausea. She went to the bathroom, and began to experience flashing lights and then became unconscious after she sat down on the toilet. She was then found by her son after an undetermined amount of time on the bathroom floor. She had accidentally defecated, and while the rest of her symptoms had subsided, she still experienced an occipital headache. also takes klonopin , remeron, abilify. sees psychiatrist; states taking Rx as prescribed; does have HX of panic attacks but denies that this event was one. no formal Hx of Seizure --though in 2014 , episode of LOC/ facial twisting--she was told could have been panic attack vs seizure. denies toxic habits beyond occasional smoking CT, CT Spine negative. CTA: RLL ground glass opacity that may be scarring vs nodule H&H 10.4/31.8 EKG 97 bpm, RBBB, no ST elevation/depression, QTc 469, Trop negative - Past Medical History ...LMP: 02/18/19 ...: No - Alcohol/Substance Use Hx Alcohol Use: No - Smoking History Smoking history: Current every day smoker Have you smoked in the past 12 months: Yes Aproximately how many cigarettes per day: 10 Home Medications - Allergies Allergies/Adverse Reactions: Allergies Allergy/AdvReac Type Severity Reaction Status Date / Time No Known Allergies Allergy Verified 03/05/19 17:34 - Home Medications Home Medications: Ambulatory Orders Albuterol Sulfate Inhaler - [Ventolin Hfa Inhaler -] 2 inh PO Q6H #1 inh Montelukast Na [Singulair -] 10 mg PO HS #7 tablet 10/02/18 Aripiprazole 15 mg PO DAILY 03/06/19 Benztropine Mesylate 0.5 mg PO DAILY 03/06/19 Mirtazapine 7.5 mg PO HS 03/06/19 clonazePAM [Klonopin -] 1 tab PO DAILY PRN 03/06/19 Physical Exam-Neuro Vital Signs: Vital Signs Temperature 98.4 F 03/07/19 09:16 Pulse Rate 86 03/07/19 09:16 Respiratory Rate 18 03/07/19 09:16 Blood Pressure 122/68 03/07/19 09:16 O2 Sat by Pulse Oximetry (%) 97 03/06/19 21:00 Labs: CBC, BMP 03/07/19 05:45 03/07/19 05:45 INR, PTT INR 0.96 (0.83-1.09) 03/05/19 18:20 - Neuro Exam Level Of Consciousness: Yes: Alert, Oriented to Person (EOMI, no facial, motor 5/5, reflexes symmetric , no level ) Imaging - Results Cat Scan: Report Reviewed, Image Reviewed Problem List - Problems (1) Atypical migraine Code(s): G43.009 - MIGRAINE W/O AURA, NOT INTRACTABLE, W/O STATUS MIGRAINOSUS (2) Syncope Code(s): R55 - SYNCOPE AND COLLAPSE (3) Transient loss of consciousness Code(s): R55 - SYNCOPE AND COLLAPSE Assessment/Plan 48 year old female with PMH of HLD, ? TIA/CVA, depression, and a breast mass. She presented to the ER after an unwitnessed episode of syncope involving a fall and head trauma at 3AM. She states that she was in bed at night when she began to experience chest tightness, SOB, chills, erratic eye movements, an occipital headache, and nausea. She went to the bathroom, and began to experience flashing lights and then became unconscious after she sat down on the toilet. She was then found by her son after an undetermined amount of time on the bathroom floor. She had accidentally defecated, and while the rest of her symptoms had subsided, she still experienced an occipital headache. also takes klonopin , remeron, abilify. sees psychiatrist; states taking Rx as prescribed; does have HX of panic attacks but denies that this event was one. no formal Hx of Seizure --though in 2014 , episode of LOC/ facial twisting--she was told could have been panic attack vs seizure. denies toxic habits beyond occasional smoking CT, CT Spine negative. CTA: RLL ground glass opacity that may be scarring vs nodule H&H 10.4/31.8 EKG 97 bpm, RBBB, no ST elevation/depression, QTc 469, Trop negative AP : Convulsive syncope vs basilar migraine vs seizure, less likely panic attack or vascular TIA event check MRI MRA BRAIN check routine EEG no AED for now cardiology FU will need outpt neuro FU DR OVALLE [phone]
[2019-03-07] MEDS: MIRTAZAPINE 15 MG TABLET (FP) PO SCH (21:08)
[2019-03-07] MEDS: MONTELUKAST NA 10 MG TABLET PO SCH (21:08)
[2019-03-07] MEDS: ACETAMINOPHEN 325 MG TABLET (FP) PO PRN (21:09)
[2019-03-08] MEDS: ALBUTEROL SO4 8 GM HFA INHALER IH SCH ×3 (04:08→15:27)
[2019-03-08 07:02] LABS: BASO % 0.5 % (0-2.0); EOS % 0.2 % (0-4.5); HEMATOCRIT 30.1 % (32.4-45.2); HEMOGLOBIN 9.8 GM/dL (10.7-15.3); LYMPH % 35.7 % (8-40); MCH 26.9 pg (25.7-33.7); MCHC 32.7 g/dl (32.0-36.0); MEAN CELL VOLUME 82.4 fl (80-96); MEAN PLT VOLUME 8.8 fl (7.5-11.1); MONO % 9.4 % (3.8-10.2); NEUT % 54.2 % (42.8-82.8); PLATELET COUNT 195 K/MM3 (134-434); RBC 3.65 M/mm3 (3.60-5.2); RDW 14.3 % (11.6-15.6); WHITE BLOOD COUNT 4.3 K/mm3 (4.0-10.0)
[2019-03-08] MEDS ORDERED: PT OWN MED DRAWER 7, Y5N ONE ×2 (08:57→09:36)
[2019-03-08] MEDS: ARIPiprazole 15 MG TABLET PO SCH (09:38)
[2019-03-08] MEDS: BENZTROPINE MESYLATE 0.5 MG TABLET (FP) PO SCH (09:38)
--- NOTE | 2019-03-08 14:19 | PN ---
Progress Note, Physician Chief Complaint: syncope History of Present Illness: feeling better, no complaints, uneventful night - Current Medication List Current Medications: Active Medications Acetaminophen (Tylenol -) 650 mg PO Q6H PRN PRN Reason: Fever Or Pain Last Admin: 03/07/19 21:09 Dose: 650 mg Albuterol Sulfate (Ventolin Hfa Inhaler -) 2 puff IH Q6H [facility] Last Admin: 03/08/19 09:38 Dose: 2 puff Aripiprazole (Abilify) 15 mg PO DAILY [facility] Last Admin: 03/08/19 09:38 Dose: 15 mg Benztropine Mesylate (Cogentin -) 0.5 mg PO DAILY [facility] Last Admin: 03/08/19 09:38 Dose: 0.5 mg Clonazepam (Klonopin -) 0.5 mg PO DAILY PRN PRN Reason: ANXIETY Mirtazapine (Remeron -) 7.5 mg PO HS [facility] Last Admin: 03/07/19 21:08 Dose: 7.5 mg Montelukast Sodium (Singulair -) 10 mg PO [facility] Last Admin: 03/07/19 21:08 Dose: 10 mg - Objective Vital Signs: Vital Signs Temperature 98.4 F 03/08/19 09:41 Pulse Rate 84 03/08/19 09:41 Respiratory Rate 16 03/08/19 09:41 Blood Pressure 127/66 03/08/19 09:41 O2 Sat by Pulse Oximetry (%) 99 03/08/19 10:00 Constitutional: Yes: Well Nourished, No Distress, Calm HENT: Yes: WNL, Atraumatic, Normocephalic Neck: Yes: WNL, Supple, Trachea Midline Cardiovascular: Yes: WNL, Regular Rate and Rhythm Respiratory: Yes: WNL, Regular, CTA Bilaterally Gastrointestinal: Yes: WNL, Normal Bowel Sounds, Soft Musculoskeletal: Yes: WNL Extremities: Yes: WNL Edema: No Neurological: Yes: WNL, Alert, Oriented, Cran Nerves II-XII Intact Labs: CBC, BMP 03/08/19 05:45 03/07/19 05:45 INR, PTT INR 0.96 (0.83-1.09) 03/05/19 18:20 Problem List - Problems (1) Hypertension Code(s): I10 - ESSENTIAL (PRIMARY) HYPERTENSION (2) Schizoaffective disorder Code(s): F25.9 - SCHIZOAFFECTIVE DISORDER, UNSPECIFIED (3) Syncope Code(s): R55 - SYNCOPE AND COLLAPSE (4) Transient loss of consciousness Code(s): R55 - SYNCOPE AND COLLAPSE Assessment/Plan ASSESSMENT: 48 year old female with PMH of HLD, TIA/CVA, depression presents to ED after an unwitnessed episode of syncope involving a fall and head trauma. LOC-unclear etiology Anemia Chest pain HLD Depression Lung nodule PLAN: -MRI/MRA negative -echo report reviewed, unremarkable -negative orthostatics -EEG pending -chest pain resolved, trop neg -KYMBERLY 2/2 heavy menses, needs to fu outpatient with supervisor wet room -lung nodule needs close outpatient followup -neuro eval -DC planning
[2019-03-08] MEDS ORDERED: DOCUSATE SODIUM 100 MG CAPSULE (FP) PO SCH (15:00)
[2019-03-08 15:16] VITALS: BP 103/57; PULSE 92; TEMP 98.1
--- NOTE | 2019-03-08 15:18 | PN ---
Progress Note (short form) - Note Progress Note: 48 year old female with PMH of HLD, TIA/CVA, depression, and a breast mass. She presented to the ER after an unwitnessed episode of syncope involving a fall and head trauma at 3AM. She states that she was in bed at night when she began to experience chest tightness, SOB, chills, erratic eye movements, an occipital headache, and nausea. She went to the bathroom, and began to experience flashing lights and then became unconscious after she sat down on the toilet. She was then found by her son after an undetermined amount of time on the bathroom floor. She had accidentally defecated, and while the rest of her symptoms had subsided, she still experienced an occipital headache. also takes klonopin , remeron, abilifhenry. sees psychiatrist; states taking Rx as prescribed; does have HX of panic attacks but denies that this event was one. no formal Hx of Seizure --though in 2014 , episode of LOC/ facial twisting--she was told could have been panic attack vs seizure. denies toxic habits beyond occasional smoking FU : no new events MRI MRA reviewed- WNL - Past Medical History ...LMP: 02/18/19 ...: No - Alcohol/Substance Use Hx Alcohol Use: No - Smoking History Smoking history: Current every day smoker Have you smoked in the past 12 months: Yes Aproximately how many cigarettes per day: 10 Home Medications - Allergies Allergies/Adverse Reactions: Allergies Allergy/AdvReac Type Severity Reaction Status Date / Time No Known Allergies Allergy Verified 03/05/19 17:34 - Home Medications Home Medications: Ambulatory Orders Albuterol Sulfate Inhaler - [Ventolin Hfa Inhaler -] 2 inh PO Q6H #1 inh Montelukast Na [Singulair -] 10 mg PO HS #7 tablet 10/02/18 Aripiprazole 15 mg PO DAILY 03/06/19 Benztropine Mesylate 0.5 mg PO DAILY 03/06/19 Mirtazapine 7.5 mg PO HS 03/06/19 clonazePAM [Klonopin -] 1 tab PO DAILY PRN 03/06/19 Physical Exam-Neuro Vital Signs: Vital Signs Temperature 98.4 F 03/08/19 09:41 Pulse Rate 84 03/08/19 09:41 Respiratory Rate 16 03/08/19 09:41 Blood Pressure 127/66 03/08/19 09:41 O2 Sat by Pulse Oximetry (%) 99 03/08/19 10:00 Labs: CBC, BMP 03/07/19 05:45 03/07/19 05:45 INR, PTT INR 0.96 (0.83-1.09) 03/05/19 18:20 - Neuro Exam Level Of Consciousness: Yes: Alert, Oriented to Person (EOMI, no facial, motor 5/5, reflexes symmetric , no level ) Imaging - Results Cat Scan: Report Reviewed, Image Reviewed Problem List - Problems (1) Atypical migraine Code(s): G43.009 - MIGRAINE W/O AURA, NOT INTRACTABLE, W/O STATUS MIGRAINOSUS (2) Syncope Code(s): R55 - SYNCOPE AND COLLAPSE (3) Transient loss of consciousness Code(s): R55 - SYNCOPE AND COLLAPSE Assessment/Plan 48 year old female with PMH of HLD, ? TIA/CVA, depression, and a breast mass. She presented to the ER after an unwitnessed episode of syncope involving a fall and head trauma at 3AM. She states that she was in bed at night when she began to experience chest tightness, SOB, chills, erratic eye movements, an occipital headache, and nausea. She went to the bathroom, and began to experience flashing lights and then became unconscious after she sat down on the toilet. She was then found by her son after an undetermined amount of time on the bathroom floor. She had accidentally defecated, and while the rest of her symptoms had subsided, she still experienced an occipital headache. also takes klonopin , remeron, abilify. sees psychiatrist; states taking Rx as prescribed; does have HX of panic attacks but denies that this event was one. no formal Hx of Seizure --though in 2014 , episode of LOC/ facial twisting--she was told could have been panic attack vs seizure. denies toxic habits beyond occasional smoking CT, CT Spine negative. CTA: RLL ground glass opacity that may be scarring vs nodule H&H 10.4/31.8 EKG 97 bpm, RBBB, no ST elevation/depression, QTc 469, Trop negative AP : Convulsive syncope vs basilar migraine vs seizure, less likely panic attack or vascular TIA event back to baseline MRI MRA BRAIN NL check routine EEG -can be done outpt no AED for now cardiology FU neuro stable and can FU as outpt thanks DR OVALLE [phone] Problem List - Problems (1) Atypical migraine Code(s): G43.009 - MIGRAINE W/O AURA, NOT INTRACTABLE, W/O STATUS MIGRAINOSUS (2) Syncope Code(s): R55 - SYNCOPE AND COLLAPSE (3) Transient loss of consciousness Code(s): R55 - SYNCOPE AND COLLAPSE
--- NOTE | 2019-03-08 15:25 | DS ---
Physical Examination Vital Signs: Vital Signs Temperature 98.1 F 03/08/19 15:15 Pulse Rate 92 H 03/08/19 15:15 Respiratory Rate 18 03/08/19 15:15 Blood Pressure 103/57 L 03/08/19 15:15 O2 Sat by Pulse Oximetry (%) 99 03/08/19 10:00 Labs: CBC, BMP 03/08/19 05:45 03/07/19 05:45 Discharge Summary Problems reviewed: Yes Reason For Visit: DYSPNEA ON EXERTION, CLOSED HEAD INJURY Current Active Problems Asthma (Acute) Atypical migraine (Acute) Chest pain (Acute) Closed head injury (Acute) LEWIS (dyspnea on exertion) (Acute) Hypertension (Acute) Schizoaffective disorder (Acute) Syncope (Acute) Transient loss of consciousness (Acute) Hospital Course: Patient Name: DAVID DILLARD Date of : 72 Patient Status: Inpatient Attending Provider: Margo Nieves Date: 03/08/19 14:17 Initialization Date: 03/08/19 14:17 Progress Note, Physician Chief Complaint: syncope History of Present Illness: feeling better, no complaints, uneventful night - Current Medication List Current Medications: Active Medications Acetaminophen (Tylenol -) 650 mg PO Q6H PRN PRN Reason: Fever Or Pain Last Admin: 03/07/19 21:09 Dose: 650 mg Albuterol Sulfate (Ventolin Hfa Inhaler -) 2 puff IH Q6H [facility] Last Admin: 03/08/19 09:38 Dose: 2 puff Aripiprazole (Abilify) 15 mg PO DAILY [facility] Last Admin: 03/08/19 09:38 Dose: 15 mg Benztropine Mesylate (Cogentin -) 0.5 mg PO DAILY [facility] Last Admin: 03/08/19 09:38 Dose: 0.5 mg Clonazepam (Klonopin -) 0.5 mg PO DAILY PRN PRN Reason: ANXIETY Mirtazapine (Remeron -) 7.5 mg PO HS [facility] Last Admin: 03/07/19 21:08 Dose: 7.5 mg Montelukast Sodium (Singulair -) 10 mg PO HS [facility] Last Admin: 03/07/19 21:08 Dose: 10 mg - Objective Vital Signs: Vital Signs Temperature 98.4 F 03/08/19 09:41 Pulse Rate 84 03/08/19 09:41 Respiratory Rate 16 03/08/19 09:41 Blood Pressure 127/66 03/08/19 09:41 O2 Sat by Pulse Oximetry (%) 99 03/08/19 10:00 Constitutional: Yes: Well Nourished, No Distress, Calm HENT: Yes: WNL, Atraumatic, Normocephalic Neck: Yes: WNL, Supple, Trachea Midline Cardiovascular: Yes: WNL, Regular Rate and Rhythm Respiratory: Yes: WNL, Regular, CTA Bilaterally Gastrointestinal: Yes: WNL, Normal Bowel Sounds, Soft Musculoskeletal: Yes: WNL Extremities: Yes: WNL Edema: No Neurological: Yes: WNL, Alert, Oriented, Cran Nerves II-XII Intact Labs: CBC, BMP 03/08/19 05:45 03/07/19 05:45 INR, PTT INR 0.96 (0.83-1.09) 03/05/19 18:20 Problem List - Problems (1) Hypertension Code(s): I10 - ESSENTIAL (PRIMARY) HYPERTENSION (2) Schizoaffective disorder Code(s): F25.9 - SCHIZOAFFECTIVE DISORDER, UNSPECIFIED (3) Syncope Code(s): R55 - SYNCOPE AND COLLAPSE (4) Transient loss of consciousness Code(s): R55 - SYNCOPE AND COLLAPSE Assessment/Plan ASSESSMENT: 48 year old female with PMH of HLD, TIA/CVA, depression presents to ED after an unwitnessed episode of syncope involving a fall and head trauma. LOC-unclear etiology Anemia Chest pain HLD Depression Lung nodule PLAN: -MRI/MRA negative -echo report reviewed, unremarkable -negative orthostatics -EEG outpatient -chest pain resolved, trop neg -KYMBERLY 2/2 heavy menses, needs to fu outpatient with benzol operator -lung nodule needs close outpatient followup -neuro eval -cleared for DC per neuro Condition: Fair - Instructions Referrals: ON STAFF,NOT [Primary Care Provider] - - Home Medications Comprehensive Discharge Medication List: Ambulatory Orders Albuterol Sulfate Inhaler - [Ventolin Hfa Inhaler -] 2 inh PO Q6H #1 inh Montelukast Na [Singulair -] 10 mg PO HS #7 tablet 10/02/18 Aripiprazole 15 mg PO DAILY 03/06/19 Benztropine Mesylate 0.5 mg PO DAILY 03/06/19 Mirtazapine 7.5 mg PO HS 03/06/19 clonazePAM [Klonopin -] 1 tab PO DAILY PRN 03/06/19
== END 2019-03-08 17:37 | disposition home or self-care (01) | DRG 204 ==
LOC: JER 17:18 → JERBED 22:42 → J4S 03-06 13:33
PROVIDERS: ADMIT Internal Medicine; ATTEND Internal Medicine
DX: R55 Syncope and collapse (principal); F25.9 Schizoaffective disorder, unspecified; S09.90XA Unspecified injury of head, initial encounter; I25.10 Atherosclerotic heart disease of native coronary artery without angina pectoris; I25.2 Old myocardial infarction; F32.9 Major depressive disorder, single episode, unspecified; E78.5 Hyperlipidemia, unspecified; Z86.73 Personal history of transient ischemic attack (TIA), and cerebral infarction without residual deficits; F17.210 Nicotine dependence, cigarettes, uncomplicated; D50.9 Iron deficiency anemia, unspecified; J45.909 Unspecified asthma, uncomplicated; G43.009 Migraine without aura, not intractable, without status migrainosus; R91.1 Solitary pulmonary nodule; W19.XXXA Unspecified fall, initial encounter; Y93.89 Activity, other specified; Y92.89 Other specified places as the place of occurrence of the external cause; Y99.8 Other external cause status; R07.89 Other chest pain; I45.10 Unspecified right bundle-branch block
CPT/HCPCS: 36415; 70450-TC; 70544-TC; 70551-TC; 71275-TC; 72125-TC; 80053; 80307; 81003; 82272; 82550; 83540; 83550; 83605; 83735; 83880; 84100; 84443; 84484; 84703; 85025; 85610; 85730; 87086; 93005; 93010; 93306-TC; 99285-25; J0131; J7030; Q9967